=== PATIENT | female | born 1960 | race Caucasian/White ===

== ENCOUNTER 2017-05-25 16:38 | Observation (INO) ==
[2017-05-25 19:03] LABS: Basophils % 0.2 %; Immature Granulocytes % 0.3 % (0-4); Lymphocytes % 6.7 %; Mean Corpuscular HGB Conc 34.8 g/dL (31.6-35.5); Mean Corpuscular Hemoglobin 31.9 pg (28.0-33.3); Mean Corpuscular Volume 91.6 fL (83.0-100.0); Mean Platelet Volume 9.8 fL (9.4-12.4); Monocytes # 0.4 K/mcL (0.0-1.3); Monocytes % 3.1 %; Neutrophils # 12.8 K/mcL (1.6-8.9); Platelet Count 277 K/mcL (140-400); Red Blood Count 5.02 M/mcL (3.82-4.97); Red Cell Distribution Width 12.4 % (11.5-14.5); Segmented Neutrophils % 89.7 %
[2017-05-25 19:17] LABS: Albumin 4.6 g/dL (3.5-5.7); Bilirubin,Direct 0.1 mg/dL (0.0-0.2); Bilirubin,Indirect 0.5 mg/dL (0.0-1.2); Bilirubin,Total 0.6 mg/dL (0.3-1.0); Calcium 9.5 mg/dL (8.6-10.3); Carbon Dioxide 27 mEq/L (23-29); Chloride 105 mEq/L (98-107); Potassium 3.9 mEq/L (3.5-5.1); Sodium 138 mEq/L (136-145)
[2017-05-25 19:46] LABS: Alanine Aminotransferase 19 Units/L (7-52); Albumin/Globulin Ratio 1.5 (1.1-2.2); Alkaline Phosphatase 79 Units/L (34-104); Aspartate Amino Transferase 16 Units/L (13-39); BUN/Creatinine Ratio 15 (6-26); Blood Urea Nitrogen 11 mg/dL (6-20); Globulin 3.1 g/dL (2.4-3.5); Glucose 127 mg/dL (70-105); Lipase 4 Units/L (11-82); Osmolality,Calculated 287 (280-300); Total Protein 7.7 g/dL (6.4-8.9); eGFR For African Americans > 60 (> 60); eGFR For Non-African Americans > 60 (> 60)
[2017-05-25] MEDS ORDERED: *HR* HYDROmorphone (PF) 1 MG/ML SYRINGE IVP ONE ×2 (20:09→21:43)
[2017-05-25] MEDS ORDERED: Ondansetron 4 MG/2 ML VIAL IVP ONE (20:09)
--- NOTE | 2017-05-25 20:09 | Emergency Department Note ---
Disposition Clinical Impression: Colitis Abdominal pain Qualifiers: Abdominal location: unspecified location Qualified Code(s): R10.9 - Unspecified abdominal pain Intractable nausea and vomiting Qualifiers: Vomiting type: unspecified Qualified Code(s): R11.2 - Nausea with vomiting, unspecified Disposition: Admitted As Inpatient Condition: Good General Adult HPI - General Chief complaint: ED Nausea/Vomiting/Diarrhea Stated complaint: ABD Pain/vomiting Time Seen by Provider: 05/25/17 17:37 Source: patient Limitations: no limitations Nursing Notes Reviewed: Yes Vital Signs Reviewed: Yes - History of Present Illness HPI Narrative: Patient presents today for abdominal pain. Patient states abdominal pain has been intermittent for the last 2 weeks. Worse of today. Associated nausea and decreased appetite. Describes pain as generalized worse in the lower quadrants. Radiates around to the back. Worse with movement and walking. Better with rest and still position. No previous history of abdominal surgeries. Review of systems positive for chills, nausea, decreased appetite, abdominal pain, constipation. No fevers, dysuria, frequency, vaginal bleeding or discharge. Pain Scale: 10 - Related Data Home Medications Medication Instructions Recorded Confirmed Advil 12/11/16 Benadryl 12/11/16 Vicks Dayquil Cough 12/11/16 12/11/16 Previous Rx's Medication Instructions Recorded Benzonatate [Tessalon] 200 mg PO TID PRN #30 capsule 12/11/16 Doxycycline 100 mg PO BID #14 capsule 12/11/16 GuaiFENesin ER [Mucinex] 1,200 mg PO BID #20 tbbp.12hr 12/11/16 predniSONE [PredniSONE] 60 mg PO DAILY 5 Days tablet 12/11/16 Allergies Allergy/AdvReac Type Severity Reaction Status Date / Time Penicillins Allergy Rash Verified 12/11/16 11:11 All systems ED: reviewed and negative except as stated. Review of Systems: As Per HPI Constitutional: Reports: chills Cardiovascular: Denies: chest pain Respiratory: Denies: dyspnea Gastrointestinal: Reports: abdominal pain, nausea, constipation Genitourinary: Denies: urgency, dysuria, frequency Past Medical History - Past Medical History Medical history: Reports: no medical history Psychiatric history: Reports: anxiety, depression - Social History Smoking Status: Current every day smoker Smokeless Tobacco Status: No Alcohol use: Reports: none Drug use: Reports: none Physical Exam General: Well appearing, nontoxic, no acute distress Head: Normocephalic Atraumatic Eyes: PERRL, EOMI ENT: Airway patent, no stridor Neck: supple, no meningismus Chest: Lungs clear to auscultation bilateral Cardiac: Regular rate and rhythm, no murmurs, rubs or gallops Abdomen: Right lower quadrant tenderness with radiation of pains across the abdomen. Mild epigastric discomfort. Positive guarding. Positive rebound. No CVA tenderness bilaterally. Musculoskeletal: Calves symmetric, nontender, no palpable cord Skin: No rash, normal skin tone Neuro: Alert and Oriented to person, place, and time; No focal deficit - General Limitations: no limitations General appearance: alert Course - Reevaluation(s) Reevaluation #1: CT scan shows colitis. Patient unable to tolerate by mouth. Patient will be admitted for antibiotics and fluids. - Consultations Consultation #1: Discussed with hospitalist, , patient accepted for admission. Vital Signs Temperature 99.4 F 05/25/17 17:18 Pulse Rate 85 05/25/17 17:18 Respiratory Rate 16 05/25/17 17:18 Blood Pressure 165/92 05/25/17 17:18 O2 Sat by Pulse Oximetry 97 05/25/17 17:18 Temperature 99.4 F 05/25/17 17:18 Pulse Rate 75 05/25/17 21:32 Respiratory Rate 16 05/25/17 21:32 Blood Pressure 163/90 05/25/17 21:32 O2 Sat by Pulse Oximetry 97 05/25/17 21:32 Oxygen Delivery Oxygen Delivery Room Air Medical Decision Making - Lab Data Result diagrams: 05/25/17 18:55 05/25/17 18:55 Lab Results 05/25/17 05/25/17 05/25/17 Range/Units 18:53 18:55 18:55 WBC 14.3 H (4.3-11.1) K/mcL RBC 5.02 H (3.82-4.97) M/mcL Hgb 16.0 H (11.5-15.4) g/dL Hct 46.0 H (35.3-44.9) % MCV 91.6 (83.0-100.0) fL MCH 31.9 (28.0-33.3) pg MCHC 34.8 (31.6-35.5) g/dL RDW 12.4 (11.5-14.5) % Plt Count 277 (140-400) K/mcL MPV 9.8 (9.4-12.4) fL Immature Gran % 0.3 (0-4) % Seg Neutrophils % 89.7 % Lymphocytes % 6.7 % Monocytes % 3.1 % Eosinophils % 0.0 % Basophils % 0.2 % Neutrophils # 12.8 H (1.6-8.9) K/mcL Lymphocytes # 1.0 (0.6-4.6) K/mcL Monocytes # 0.4 (0.0-1.3) K/mcL Eosinophils # 0.0 (0.0-0.6) K/mcL Basophils # 0.0 (0.0-0.2) K/mcL Sodium 138 (136-145) mEq/L Potassium 3.9 (3.5-5.1) mEq/L Chloride 105 (98-107) mEq/L Carbon Dioxide 27 (23-29) mEq/L BUN 11 (6-20) mg/dL Creatinine 0.71 (0.60-1.20) mg/dL Est GFR ( Amer) > 60 (> 60) Est GFR (Non-Af Amer) > 60 (> 60) BUN/Creatinine Ratio 15 (6-26) Glucose 127 H (70-105) mg/dL Calculated Osmolality 287 (280-300) Calcium 9.5 (8.6-10.3) mg/dL Total Bilirubin 0.6 (0.3-1.0) mg/dL Direct Bilirubin 0.1 (0.0-0.2) mg/dL Indirect Bilirubin 0.5 (0.0-1.2) mg/dL AST 16 (13-39) Units/L ALT 19 (7-52) Units/L Alkaline Phosphatase 79 (34-104) Units/L Troponin I (< 0.04) ng/mL Serum Total Protein 7.7 (6.4-8.9) g/dL Albumin 4.6 (3.5-5.7) g/dL Globulin 3.1 (2.4-3.5) g/dL Albumin/Globulin Ratio 1.5 (1.1-2.2) Lipase 4 L (11-82) Units/L Serum , Qual Negative (Negative) Urine Color (Yellow) Urine Clarity (Clear) Urine pH (5.0-8.0) pH Units Ur Specific [place] (1.010-1.025) Urine Protein (Neg-Trace) mg/dL Urine Glucose (UA) (Normal) mg/dL Urine Ketones (Negative) mg/dL Urine Blood (Negative) Urine Nitrite (Negative) Urine Bilirubin (Negative) Urine Urobilinogen (Normal) mg/dL Ur Leukocyte Esterase (Negative) Urine Microscopic RBC (0-3) per hpf Urine Microscopic WBC (0-3) per hpf Ur Squamous Epith Cells (None-Few) per lpf Urine Bacteria (None-Few) per hpf Hyaline Casts (None-Few) per lpf Ur Culture Indicated? (NO) 05/25/17 05/25/17 Range/Units 18:55 20:17 WBC (4.3-11.1) K/mcL RBC (3.82-4.97) M/mcL Hgb (11.5-15.4) g/dL Hct (35.3-44.9) % MCV (83.0-100.0) fL MCH (28.0-33.3) pg MCHC (31.6-35.5) g/dL RDW (11.5-14.5) % Plt Count (140-400) K/mcL MPV (9.4-12.4) fL Immature Gran % (0-4) % Seg Neutrophils % % Lymphocytes % % Monocytes % % Eosinophils % % Basophils % % Neutrophils # (1.6-8.9) K/mcL Lymphocytes # (0.6-4.6) K/mcL Monocytes # (0.0-1.3) K/mcL Eosinophils # (0.0-0.6) K/mcL Basophils # (0.0-0.2) K/mcL Sodium (136-145) mEq/L Potassium (3.5-5.1) mEq/L Chloride (98-107) mEq/L Carbon Dioxide (23-29) mEq/L BUN (6-20) mg/dL Creatinine (0.60-1.20) mg/dL Est GFR ( Amer) (> 60) Est GFR (Non-Af Amer) (> 60) BUN/Creatinine Ratio (6-26) Glucose (70-105) mg/dL Calculated Osmolality (280-300) Calcium (8.6-10.3) mg/dL Total Bilirubin (0.3-1.0) mg/dL Direct Bilirubin (0.0-0.2) mg/dL Indirect Bilirubin (0.0-1.2) mg/dL AST (13-39) Units/L ALT (7-52) Units/L Alkaline Phosphatase (34-104) Units/L Troponin I < 0.03 (< 0.04) ng/mL Serum Total Protein (6.4-8.9) g/dL Albumin (3.5-5.7) g/dL Globulin (2.4-3.5) g/dL Albumin/Globulin Ratio (1.1-2.2) Lipase (11-82) Units/L Serum , Qual (Negative) Urine Color Yellow (Yellow) Urine Clarity Clear (Clear) Urine pH 6.0 (5.0-8.0) pH Units Ur Specific [place] > 1.030 H (1.010-1.025) Urine Protein 30 H (Neg-Trace) mg/dL Urine Glucose (UA) Normal (Normal) mg/dL Urine Ketones 80 H (Negative) mg/dL Urine Blood Trace H (Negative) Urine Nitrite Negative (Negative) Urine Bilirubin Negative (Negative) Urine Urobilinogen Normal (Normal) mg/dL Ur Leukocyte Esterase Negative (Negative) Urine Microscopic RBC 5-15 H (0-3) per hpf Urine Microscopic WBC 3-5 H (0-3) per hpf Ur Squamous Epith Cells Many H (None-Few) per lpf Urine Bacteria None Seen (None-Few) per hpf Hyaline Casts None Seen (None-Few) per lpf Ur Culture Indicated? NO (NO) Attestation Statement - Attestation Attestation: I examined this patient and my medical decision-making was reviewed with the Resident Physician, Dr. Plata. I agree with the documented findings, disposition and treatment plan as described except to the extent set forth below. Patient is an otherwise healthy 56-year-old white female who presents to the emergency room today with a two-week history of intermittent fleeting sharp abdominal pain that has been in various locations lasting seconds and then resolving. Patient states then this morning she woke up and she was having severe generalized lower abdominal pain, bloating, and intractable nausea and vomiting. Patient reports that she was here approximately 6 weeks ago after her family doctor sent her here for inability to have a bowel movement for over 6 days. She reports having a workup done and was told everything was okay and was placed on a stool softener. Patient denies any fevers or chills, no bowel changes or blood in her stool, no abdominal surgeries in the past and no other associated symptoms. I agree with patient's physical exam findings as documented. Patient underwent lab evaluation and received pain medicines and antiemetics for comfort. Patient was sent for CT scanning with IV contrast to rule out any intra-abdominal emergency due to her abdominal exam. Patient's CT reports evidence of colitis acute on chronic changes. Appendix appears normal. Due to her inability to tolerate by mouth, ongoing pain and can concerning CT findings for colitis we will cover the patient with IV antibiotics and admit the patient to the hospitalist service for further evaluation and management. Patient remains hemodynamically stable at this time and serial abdominal exams are unchanged.
[2017-05-25 20:27] LABS: Bilirubin,Urine Negative (Negative); Blood,Urine Trace (Negative); Clarity,Urine Clear (Clear); Color,Urine Yellow (Yellow); Glucose,Urine (UA) Normal (Normal); Ketones,Urine 80 mg/dL (Negative); Leukocyte Esterase,Urine Negative (Negative); Nitrite,Urine Negative (Negative); Protein,Urine 30 mg/dL (Neg-Trace); Specific Gravity,Urine > 1.030 (1.010-1.025); Urobilinogen,Urine Normal (Normal)
[2017-05-25 20:28] LABS: Bacteria,Urine None Seen per hpf (None-Few); Hyaline Casts,Urine None Seen per lpf (None-Few); Squamous Epithelial Cell,Urine Many per lpf (None-Few)
[2017-05-25] MEDS ORDERED: MetroNIDAZOLE 500 MG/100 ML 500 MG/100 ML BAG IVPB ONE (20:57)
[2017-05-25] MEDS ORDERED: 0.9 % Sodium Chloride 1,000 ML IVC ONE (21:00)
[2017-05-25] MEDS ORDERED: Acetaminophen 325 MG TABLET PO PRN (23:50)
[2017-05-25] MEDS ORDERED: Naloxone 0.4 MG/ML INJ IVP PRN (23:50)
--- NOTE | 2017-05-25 23:52 | Internal Med History&Physical ---
<Yo Garcia - Last Filed: 05/26/17 00:19> Date of Encounter: 05/26/17 Time of Encounter: 23:30 Assessment and Plan (1) Colitis Current visit: Yes Status: Acute 2 weeks of intermittent worsening abdominal pain more pronounced in left lower quadrant without bleed, fever, diarrhea, ascending paralysis/paresthesias/ dyspnea. Continue Cipro/flagyl. IV hydration 100cc/hr. Colonoscopy performed 5 years ago, pt reports no concerning findings per GI. Pain management if needed. Morphine 4mg q4, Dilaudid .5mg q4 for severe pain. Meds list verification. (2) Abdominal pain Current visit: Yes Status: Acute As per MDM (1). Qualifiers: Abdominal location: left lower quadrant Qualified Code(s): R10.32 - Left lower quadrant pain (3) DVT prophylaxis Current visit: Yes Status: Acute SQ Heparin 5000U q12h. Total time ~40min Internal Medicine - H&P: HPI Admitted From: Emergency Dept Plans for Post Hospital Care: Home History of present illness: Ms. Kaur is a 56 year old female who presents to ED for 2 weeks of intermittent worsening lower abdominal pain. Patient reports n/v/decreased appetite/subjective chills, denies fever, blood in stool. Last bowel movement was yesterday, normal. CT abdomen in ED shows moderate sigmoid wall thickening with adjacent pericolic fat stranding. CT 2016 shows thickened wall as well, colonoscopy 5 years ago per pt was unremarkable. Currently patient is alert, conversant, abdominal pain persists/has not worsened. Past Med Surg Social Fam HX - Past Medical History Medical history: no medical history Psychiatric history: anxiety, depression - Social History Smoking Status: Current every day smoker Smokeless Tobacco Status: No Alcohol use: none Drug use: none Internal Medicine - H&P: Meds Advil 12/11/16 [History] Benadryl 12/11/16 [History] Benzonatate [Tessalon] 200 mg PO TID PRN #30 capsule 12/11/16 [Rx] Doxycycline 100 mg PO BID #14 capsule 12/11/16 [Rx] GuaiFENesin ER [Mucinex] 1,200 mg PO BID #20 tbbp.12hr 12/11/16 [Rx] Vicks Dayquil Cough 12/11/16 [History] predniSONE [PredniSONE] 60 mg PO DAILY 5 Days tablet 12/11/16 [Rx] 3 Allergy/AdvReac Type Severity Reaction Status Date / Time Penicillins Allergy Rash Verified 12/11/16 11:11 All Systems PM: A 10-system review of systems was performed and is negative for pertinent findings except as documented above in the HPI. - Constitutional Vitals: Temp Pulse Resp BP Pulse Ox 98.0 F 89 14 135/83 97 05/25/17 23:04 05/25/17 23:04 05/25/17 23:04 05/25/17 23:04 05/25/17 23:18 General appearance: Present: A&O X 3, no acute distress - Head Head exam: Present: atraumatic - ENT ENT exam: Present: mucous membranes dry - Neck Neck exam general surgery: Present: full ROM - Cardiovascular Cardiovascular exam: Present: RRR, +S1, +S2 - GI/Abdominal GI/Abdominal exam: Present: soft, no peritoneal signs Additional comments: lower abdominal tenderness L>R - Extremities Exam Extremities exam: Present: normal inspection. Absent: calf tenderness Additional comments: normal sensation/strength Internal Med - H&P Results - Labs CBC & Chem 7: 05/25/17 18:55 05/25/17 18:55 <Mamie Macias - Last Filed: 05/26/17 01:26> Date of Encounter: 05/26/17 Time of Encounter: 00:15 Internal Medicine - H&P: HPI History of present illness: Ms. Kaur is a 56 year old female All Systems PM: A 10-system review of systems was performed and is negative for pertinent findings except as documented above in the HPI. - Constitutional Vitals: Temp Pulse Resp BP Pulse Ox 98.0 F 89 14 135/83 97 05/25/17 23:04 05/25/17 23:04 05/25/17 23:04 05/25/17 23:04 05/25/17 23:18 Internal Med - H&P Results - Labs CBC & Chem 7: 05/25/17 18:55 05/25/17 18:55 - Attending Attestation Patient is a 56y/o female admitted for abd pain, n/v secondary to colitis Pt independently seen and examined at bedside. will continue supportive care IV fluids, IV abx, pain management antiemetic support as needed start clear liquid diet and advance as tolerated Case discussed with resident physician Yo Garcia, I agree with his documented findings, assessment, and plan except as listed above. Please verify home meds in am Restart home meds after verification
[2017-05-26] MEDS: 0.9 % Sodium Chloride 1,000 ML IVC SCH ×2 (00:30→12:07)
[2017-05-26] MEDS: *HR* Morphine 2 MG/ML SYRINGE IVP PRN ×3 (00:30→20:42)
[2017-05-26 04:50] LABS: Magnesium 1.9 mg/dL (1.6-2.6); Phosphorous 3.1 mg/dL (2.7-4.5)
[2017-05-26 04:51] LABS: BUN/Creatinine Ratio 14 (6-26); Blood Urea Nitrogen 9 mg/dL (6-20); Calcium 8.3 mg/dL (8.6-10.3); Carbon Dioxide 24 mEq/L (23-29); Chloride 109 mEq/L (98-107); Glucose 95 mg/dL (70-105); Osmolality,Calculated 284 (280-300); Potassium 3.4 mEq/L (3.5-5.1); Sodium 138 mEq/L (136-145); eGFR For African Americans > 60 (> 60); eGFR For Non-African Americans > 60 (> 60)
[2017-05-26] MEDS: *HR* Heparin 5,000 UNIT/ML VIAL SQ SCH ×2 (05:29→18:04)
[2017-05-26] MEDS: MetroNIDAZOLE 500 MG/100 ML 500 MG/100 ML BAG IVPB SCH ×4 (05:29→20:41)
[2017-05-26 07:38] LABS: Basophils # 0.1 K/mcL (0.0-0.2); Basophils % 0.4 %; Eosinophils # 0.1 K/mcL (0.0-0.6); Eosinophils % 0.7 %; Hematocrit 41.3 % (35.3-44.9); Immature Granulocytes % 0.3 % (0-4); Mean Corpuscular HGB Conc 33.9 g/dL (31.6-35.5); Mean Corpuscular Hemoglobin 31.6 pg (28.0-33.3); Mean Corpuscular Volume 93.2 fL (83.0-100.0); Mean Platelet Volume 11.3 fL (9.4-12.4); Monocytes # 1.2 K/mcL (0.0-1.3); Monocytes % 9.3 %; Neutrophils # 8.1 K/mcL (1.6-8.9); Platelet Count 235 K/mcL (140-400); Red Blood Count 4.43 M/mcL (3.82-4.97); Red Cell Distribution Width 12.5 % (11.5-14.5); Segmented Neutrophils % 65.3 %
[2017-05-26] MEDS: *HR* HYDROmorphone (PF) 1 MG/ML SYRINGE IVP PRN ×3 (08:46→18:11)
--- NOTE | 2017-05-26 11:34 | Internal Med Progress Note ---
Date of Encounter: 05/26/17 Time of Encounter: 11:28 - Assessment and plan (1) Colitis Current Visit: Yes Status: Acute Assessment and plan: Sigmoid wall thickening not significantly different than previous imaging. Continue bowel rest and advance diet slowly. Continue current pain mgt. Continue empiric antibiotic coverage with Cipro and Flagyl. (2) Abdominal pain Current Visit: Yes Status: Acute Assessment and plan: Abdominal pain associated with sigmoid colitis. Treatment as noted abo ve. Qualifiers: Abdominal location: left lower quadrant Qualified Code(s): R10.32 - Left lower quadrant pain - Subjective Interval history: 56 yr old woman with history of IBS who presented with several days of worsening RLQ abd pain. Her CT Abd/pelvis showed sigmoid wall thickening. Her CT-scan did not show any significant difference from prior scan. Shes not having N/V or diarrhea today - Constitutional Vitals: Temp Pulse Resp BP Pulse Ox 98.1 F 75 14 128/74 95 05/26/17 07:40 05/26/17 07:40 05/26/17 07:40 05/26/17 07:40 05/26/17 07:40 General appearance: Present: A&O X 3, no acute distress - Head Head exam: Present: atraumatic, normocephalic - Eye Eye exam: Present: EOMI, PERRL, conjuntiva pink, sclera anicteric Pupils: Present: PERRL - Neck Neck exam general surgery: Present: supple, trachea midline. Absent: lymphadenopathy - Respiratory Respiratory exam: Present: CTAB. Absent: accessory muscle use, rales, rhonchi, wheezes - Cardiovascular Cardiovascular exam: Present: RRR, +S1, +S2. Absent: diastolic murmur, gallop, JVD, rubs, systolic murmur - GI/Abdominal GI/Abdominal exam: Present: guarding, normal bowel sounds, soft, no peritoneal signs. Absent: distended, tenderness - Extremities Exam Extremities exam: Present: warm, radial pulses palpable and symmetrical. Absent : calf tenderness, cyanotic, pedal edema - Neurological Exam Neurological exam: Present: CN II-XII intact, oriented X3, no focal deficits. Absent: pronater drift, facial droop, speech deficit - Skin Skin exam: Present: dry, intact Internal Medicine: Result - Labs CBC & Chem 7: 05/26/17 04:20 05/26/17 04:20 Labs: Short CBC 05/26/17 Range/Units 04:20 WBC 12.4 H (4.3-11.1) K/mcL Hgb 14.0 D (11.5-15.4) g/dL Hct 41.3 (35.3-44.9) % Plt Count 235 (140-400) K/mcL Neutrophils # 8.1 (1.6-8.9) K/mcL BMP 05/26/17 04:20 Sodium 138 Potassium 3.4 L Chloride 109 H Carbon Dioxide 24 BUN 9 Creatinine 0.64 Glucose 95 Calcium 8.3 L Consult Discharge Plan - Plan Referrals: Mariusz Galarza DO [Primary Care Provider] -
[2017-05-27] MEDS: 0.9 % Sodium Chloride 1,000 ML IVC SCH ×2 (00:54→13:27)
[2017-05-27] MEDS: MetroNIDAZOLE 500 MG/100 ML 500 MG/100 ML BAG IVPB SCH ×3 (05:11→21:37)
[2017-05-27] MEDS: *HR* Heparin 5,000 UNIT/ML VIAL SQ SCH ×2 (05:14→17:37)
[2017-05-27 07:58] LABS: BUN/Creatinine Ratio 8 (6-26); Blood Urea Nitrogen 5 mg/dL (6-20); Calcium 8.4 mg/dL (8.6-10.3); Carbon Dioxide 26 mEq/L (23-29); Chloride 109 mEq/L (98-107); Glucose 96 mg/dL (70-105); Osmolality,Calculated 287 (280-300); Potassium 3.6 mEq/L (3.5-5.1); Sodium 140 mEq/L (136-145); eGFR For African Americans > 60 (> 60); eGFR For Non-African Americans > 60 (> 60)
[2017-05-27] MEDS: *HR* HYDROmorphone (PF) 1 MG/ML SYRINGE IVP PRN ×3 (07:58→21:45)
[2017-05-27 08:22] LABS: Basophils # 0.1 K/mcL (0.0-0.2); Basophils % 0.8 %; Eosinophils # 0.3 K/mcL (0.0-0.6); Eosinophils % 3.5 %; Hematocrit 38.5 % (35.3-44.9); Hemoglobin 12.9 g/dL (11.5-15.4); Immature Granulocytes % 0.3 % (0-4); Lymphocytes # 1.6 K/mcL (0.6-4.6); Mean Corpuscular HGB Conc 33.5 g/dL (31.6-35.5); Mean Corpuscular Hemoglobin 31.2 pg (28.0-33.3); Mean Corpuscular Volume 93.2 fL (83.0-100.0); Mean Platelet Volume 11.4 fL (9.4-12.4); Monocytes # 0.8 K/mcL (0.0-1.3); Monocytes % 10.1 %; Neutrophils # 4.7 K/mcL (1.6-8.9); Nucleated Red Blood Cells 0.4 /100 WBC (0); Platelet Count 222 K/mcL (140-400); Red Blood Count 4.13 M/mcL (3.82-4.97); Red Cell Distribution Width 12.4 % (11.5-14.5); Segmented Neutrophils % 63.3 %
--- NOTE | 2017-05-27 10:30 | Internal Med Progress Note ---
Date of Encounter: 05/27/17 Time of Encounter: 10:28 - Assessment and plan (1) Colitis Current Visit: Yes Status: Acute Assessment and plan: Sigmoid wall thickening not significantly different than previous imaging. Continue bowel rest and advance diet slowly. Continue current pain mgt. Continue empiric antibiotic coverage with Cipro and Flagyl. I called to have GI paged and was told unless its a GIB we cannot get a GI consult this weekend. She has releatively mild symptoms and can likely f/u as an out patient. Her diet will be advanced and if she tolerates it we can discharge to home tomorrow. (2) Abdominal pain Current Visit: Yes Status: Acute Qualifiers: Abdominal location: left lower quadrant Qualified Code(s): R10.32 - Left lower quadrant pain - Subjective Interval history: 56 yr old woman with history of IBS who presented with several days of worsening RLQ abd pain. Her CT Abd/pelvis showed sigmoid wall thickening. Her CT-scan did not show any significant difference from prior scan. No N/V and diarrhea. Her abdominal pain is modestly improved. - Constitutional Vitals: Temp Pulse Resp BP Pulse Ox 98.2 F 73 16 144/87 95 05/27/17 07:04 05/27/17 07:04 05/27/17 07:04 05/27/17 07:04 05/27/17 07:04 General appearance: Present: A&O X 3, no acute distress - Head Head exam: Present: atraumatic, normocephalic - Eye Eye exam: Present: PERRL, conjuntiva pink, sclera anicteric Pupils: Present: PERRL - Neck Neck exam general surgery: Present: supple, trachea midline. Absent: lymphadenopathy - Respiratory Respiratory exam: Present: CTAB. Absent: accessory muscle use, rales, rhonchi, wheezes - Cardiovascular Cardiovascular exam: Present: RRR, +S1, +S2. Absent: diastolic murmur, gallop, rubs, systolic murmur - GI/Abdominal GI/Abdominal exam: Present: normal bowel sounds, soft, no peritoneal signs. Absent: distended, tenderness - Extremities Exam Extremities exam: Present: warm, radial pulses palpable and symmetrical. Absent : calf tenderness, cyanotic, pedal edema - Neurological Exam Neurological exam: Present: CN II-XII intact, oriented X3, no focal deficits. Absent: pronater drift, facial droop, speech deficit - Skin Skin exam: Present: dry, intact Internal Medicine: Result - Labs CBC & Chem 7: 05/27/17 06:48 05/27/17 06:48 Labs: Short CBC 05/27/17 Range/Units 06:48 WBC 7.4 (4.3-11.1) K/mcL Hgb 12.9 (11.5-15.4) g/dL Hct 38.5 (35.3-44.9) % Plt Count 222 (140-400) K/mcL Neutrophils # 4.7 (1.6-8.9) K/mcL BMP 05/27/17 06:48 Sodium 140 Potassium 3.6 Chloride 109 H Carbon Dioxide 26 BUN 5 L Creatinine 0.63 Glucose 96 Calcium 8.4 L Consult Discharge Plan - Plan Referrals: Mariusz Galarza DO [Primary Care Provider] -
[2017-05-28] MEDS: 0.9 % Sodium Chloride 1,000 ML IVC SCH ×3 (03:06→16:07)
[2017-05-28] MEDS: MetroNIDAZOLE 500 MG/100 ML 500 MG/100 ML BAG IVPB SCH ×3 (05:36→21:02)
[2017-05-28] MEDS: *HR* Heparin 5,000 UNIT/ML VIAL SQ SCH ×2 (05:39→17:36)
[2017-05-28] MEDS: *HR* HYDROmorphone (PF) 1 MG/ML SYRINGE IVP PRN ×2 (08:01→19:17)
[2017-05-28] MEDS: Ondansetron ODT 4 MG TAB.RAPDIS SL PRN ×2 (08:01→23:23)
--- NOTE | 2017-05-28 09:22 | Internal Med Progress Note ---
Date of Encounter: 05/28/17 Time of Encounter: 09:22 - Assessment and plan (1) Colitis Current Visit: Yes Status: Acute Assessment and plan: Sigmoid wall thickening not significantly different than previous imaging. Continue bowel rest and advance diet slowly. Continue current pain mgt. Continue empiric antibiotic coverage with Cipro and Flagyl. I called to have GI paged and was told unless its a GIB we cannot get a GI consult this weekend. She has releatively mild symptoms and can likely f/u as an out patient. Her diet will be advanced and if she tolerates it we can discharge to home tomorrow. Today her diet was returned to soft diet. Continue cipro and flagyl and continue current pain mgt. (2) Abdominal pain Current Visit: Yes Status: Acute Qualifiers: Abdominal location: left lower quadrant Qualified Code(s): R10.32 - Left lower quadrant pain - Subjective Interval history: 56 yr old woman with history of IBS who presented with several days of worsening RLQ abd pain. Her CT Abd/pelvis showed sigmoid wall thickening. Her CT-scan did not show any significant difference from prior scan. No N/V and diarrhea. Her abdominal pain had been improved and her diet advanced. We had planned to d/c her day but she c/o increased bilateral LQ pain and we had to hold her another day and return to a soft diet. - Constitutional Vitals: Temp Pulse Resp BP Pulse Ox 98.2 F 73 16 119/78 93 05/28/17 08:11 05/28/17 08:11 05/28/17 08:11 05/28/17 08:11 05/28/17 08:11 General appearance: Present: A&O X 3, no acute distress - Head Head exam: Present: atraumatic, normal inspection, normocephalic - Eye Eye exam: Present: EOMI, PERRL, conjuntiva pink, sclera anicteric - ENT ENT exam: Present: mucous membranes moist, normal exam - Neck Neck exam general surgery: Present: normal inspection, supple, trachea midline. Absent: tenderness, nuchal rigidity, thyromegaly - GI/Abdominal GI/Abdominal exam: Present: guarding, soft, tenderness, no peritoneal signs. Absent: diminished bowel sounds, hepatomegaly, rebound, rigid - Extremities Exam Extremities exam: Present: full ROM, normal inspection, warm - Neurological Exam Neurological exam: Present: CN II-XII intact, oriented X3, no focal deficits. Absent: pronater drift, facial droop, speech deficit - Psychiatric Psychiatric exam: Present: normal affect, normal mood. Absent: suicidal ideation Internal Medicine: Result - Labs CBC & Chem 7: 05/27/17 06:48 05/27/17 06:48 Consult Discharge Plan - Plan Referrals: Mariusz Galarza DO [Primary Care Provider] -
[2017-05-29] MEDS: 0.9 % Sodium Chloride 1,000 ML IVC SCH ×2 (03:15→16:30)
[2017-05-29 04:56] LABS: Basophils # 0.1 K/mcL (0.0-0.2); Basophils % 0.8 %; Eosinophils # 0.4 K/mcL (0.0-0.6); Eosinophils % 6.4 %; Hematocrit 36.6 % (35.3-44.9); Hemoglobin 12.4 g/dL (11.5-15.4); Immature Granulocytes % 0.3 % (0-4); Lymphocytes # 1.8 K/mcL (0.6-4.6); Lymphocytes % 30.2 %; Mean Corpuscular HGB Conc 33.9 g/dL (31.6-35.5); Mean Corpuscular Hemoglobin 31.1 pg (28.0-33.3); Mean Corpuscular Volume 91.7 fL (83.0-100.0); Mean Platelet Volume 11.2 fL (9.4-12.4); Monocytes # 0.6 K/mcL (0.0-1.3); Monocytes % 10.6 %; Neutrophils # 3.1 K/mcL (1.6-8.9); Platelet Count 223 K/mcL (140-400); Red Blood Count 3.99 M/mcL (3.82-4.97); Red Cell Distribution Width 12.1 % (11.5-14.5); Segmented Neutrophils % 51.7 %
[2017-05-29 05:11] LABS: BUN/Creatinine Ratio 10 (6-26); Blood Urea Nitrogen 7 mg/dL (6-20); Calcium 8.4 mg/dL (8.6-10.3); Carbon Dioxide 26 mEq/L (23-29); Chloride 109 mEq/L (98-107); Glucose 93 mg/dL (70-105); Osmolality,Calculated 290 (280-300); Potassium 3.5 mEq/L (3.5-5.1); Sodium 141 mEq/L (136-145); eGFR For African Americans > 60 (> 60); eGFR For Non-African Americans > 60 (> 60)
[2017-05-29] MEDS: MetroNIDAZOLE 500 MG/100 ML 500 MG/100 ML BAG IVPB SCH ×3 (05:31→21:29)
[2017-05-29] MEDS: *HR* Heparin 5,000 UNIT/ML VIAL SQ SCH ×3 (05:33→21:28)
[2017-05-29] MEDS ORDERED: Polyethylene Glycol 3350 255 GM POWDER PO ONE (11:42)
--- NOTE | 2017-05-29 13:20 | Internal Med Progress Note ---
Date of Encounter: 05/29/17 Time of Encounter: 13:19 - Assessment and plan (1) Colitis Current Visit: Yes Status: Acute (2) Abdominal pain Current Visit: Yes Status: Acute Qualifiers: Abdominal location: left lower quadrant Qualified Code(s): R10.32 - Left lower quadrant pain - Subjective Interval history: 56 yr old woman with history of IBS who presented with several days of worsening RLQ abd pain. Her CT Abd/pelvis showed sigmoid wall thickening. Her CT-scan did not show any significant difference from prior scan. No N/V and diarrhea. Her abdominal pain had been improved and her diet advanced. We had planned to d/c her yesterday but she c/o increased bilateral LQ pain and we had to hold her another day and return to a soft diet. Today her pain is worse and we will consult GI. Physical exam: Gen: A&O x2 in no acute distress HEENT: Head is atraumatic and normocephalic. PERRLA, EOM-full No scleral icterus. No oral or perioral lesions. Neck: No JVD, Thyroid is ML without thyromegally or nodules. No cervical LAD CV: RRR with nl s1 and S2 No murmurs Lungs: CTAB No no wheezing, rales or rhonchi Abdomen: Soft , nondistended, tender with guarding over the LLQ. NL BS all 4 quads. No RBT or peritoneal signs. Extremities: No pedal edema Skin: warm and dry without rashes Neruo: No obvious focal deficits. Pertientnt lab findings: Noted below A/P: Sigmoid colitis: Today GI was consulted and she will start bowel prep for colonoscopy tomorrow. Continue Cipro and Flagyl. Continue current pain mgt. Continue NPO status. > 30 mins spent - Constitutional Vitals: Temp Pulse Resp BP Pulse Ox 98.2 F 71 14 145/89 95 05/29/17 10:52 05/29/17 10:52 05/29/17 10:52 05/29/17 10:52 05/29/17 10:52 General appearance: Present: A&O X 3, no acute distress Internal Medicine: Result - Labs CBC & Chem 7: 05/29/17 04:01 05/29/17 04:01 Labs: Short CBC 05/29/17 Range/Units 04:01 WBC 6.0 (4.3-11.1) K/mcL Hgb 12.4 (11.5-15.4) g/dL Hct 36.6 (35.3-44.9) % Plt Count 223 (140-400) K/mcL Neutrophils # 3.1 (1.6-8.9) K/mcL BMP 05/29/17 04:01 Sodium 141 Potassium 3.5 Chloride 109 H Carbon Dioxide 26 BUN 7 Creatinine 0.67 Glucose 93 Calcium 8.4 L Consult Discharge Plan - Plan Referrals: Mariusz Galarza DO [Primary Care Provider] -
--- NOTE | 2017-05-29 13:59 | Gastroenterology Consult Note ---
<Rosa Maria Bean - Last Filed: 05/29/17 14:01> Date of Encounter: 05/29/17 Time of Encounter: 11:15 - Assessment and plan (1) Colitis Current Visit: Yes Status: Acute Assessment and plan: 56 year old female who presents with abdominal pain, nausea and vomiting. CT abdomen shows thickening in sigmoid colon. Will proceed with colonoscopy tomorrow. Risks and benefits explained and pt is in agreement. (2) Abdominal pain Current Visit: Yes Status: Acute Qualifiers: Abdominal location: left lower quadrant Qualified Code(s): R10.32 - Left lower quadrant pain (3) Intractable nausea and vomiting Current Visit: Yes Status: Acute Assessment and plan: EGD tomorrow Qualifiers: Vomiting type: unspecified Qualified Code(s): R11.2 - Nausea with vomiting , unspecified - Time Spent With Patient Total time spent is greater than 50% in coordination of care (as documented) at patient's floor/unit and/or counseling patient: GI History of Present Illness - Data of Consult Patient: new to practice Consult date: 05/29/17 Requesting Physician: Godwin Rodgers - Consult Narrative Reason for consult: abdominal pain, abnormal CT History of present illness: Ms. Kaur is a 56 year old female with a pmhx of anxiety and depression who presents to ED for 2 weeks of intermittent worsening lower abdominal pain. She also complains of nausea, vomiting and severe abdominal pain every time she eats. She states this has been on and off for the past 6-9 months. She denies fever or chills. She reports occasional constipation that she takes miralax for and then she has diarrhea. She denies bloody, black or tarry stools. CT abdomen in ED shows moderate sigmoid wall thickening with adjacent pericolic fat stranding. This segment of colon is similar to the prior study in 2016. She reports colonoscopy 5 years ago per pt was unremarkable. Colonoscopy: 2011 Dr Gallagher (diverticulosis, internal hemorrhoids) EGD: denies NSAIDS: aleve and motrin Anticoagulants: none Past Med Surg Social Fam HX - Past Medical History Medical history: no medical history Psychiatric history: anxiety, depression - Social History Smoking Status: Current every day smoker Smokeless Tobacco Status: No Alcohol use: none Drug use: none Review of Systems: GI: as per [place] [facility]: denies fever, has some chills EYES: denies yellow discoloration ENT: denies pain with swallowing or difficulty swallowing CARDIO: denies chest pain, palpitations RESP: No Shortness of breath with exertion : denies change in color of urine NEURO: denies any weakness HEME: Denies any bruising MS: denies joint pain, joint swelling or back pain. DERM: denies rash or itching PSYCH: Denies history of anxiety or depression - Constitutional Vitals: Temp Pulse Resp BP Pulse Ox 98.2 F 71 14 145/89 95 05/29/17 10:52 05/29/17 10:52 05/29/17 10:52 05/29/17 10:52 05/29/17 10:52 Exam: CONSTITUTIONAL:~alert, no acute distress.~HEAD:~normocephalic.~EYES:~no jaundice.~NECK:~no obvious swelling.~HEART:~regular rate and rhythm, no murmurs. ~LUNGS:~bilateral good air entry.~ABDOMEN:~non distended, soft, tender, no masses palpable, no organomegaly.~RECTAL EXAM:~Deferred.~EXTREMITIES:~no clubbing, cyanosis or edema.~SKIN:~no stigmata of chronic liver disease.~ NEUROLOGIC:~no obvious focal defect.~~~~ Results - Labs CBC & Chem 7: 05/29/17 04:01 05/29/17 04:01 Labs: Last Result Calcium 8.4 mg/dL (8.6-10.3) L 05/29/17 04:01 Troponin I < 0.03 ng/mL (< 0.04) 05/25/17 18:55 Entire Visit Hgb 12.4 g/dL (11.5-15.4) 05/29/17 04:01 Hct 36.6 % (35.3-44.9) 05/29/17 04:01 Total Bilirubin 0.6 mg/dL (0.3-1.0) 05/25/17 18:55 AST 16 Units/L (13-39) 05/25/17 18:55 ALT 19 Units/L (7-52) 05/25/17 18:55 Lipase 4 Units/L (11-82) L 05/25/17 18:55 Consult Discharge Plan - Plan Referrals: Galarza,Christopher, DO [Primary Care Provider] - <Angelo Palma - Last Filed: 05/29/17 17:44> Date of Encounter: 05/29/17 Time of Encounter: 17:35 - Time Spent With Patient Total time spent is greater than 50% in coordination of care (as documented) at patient's floor/unit and/or counseling patient: GI History of Present Illness - Data of Consult Requesting Physician: Godwin Rodgers - Consult Narrative History of present illness: Ms. Kaur is a 56 year old female - Constitutional Vitals: Temp Pulse Resp BP Pulse Ox 98.5 F 72 14 142/86 95 05/29/17 15:29 05/29/17 15:29 05/29/17 15:29 05/29/17 15:29 05/29/17 15:29 Results - Labs CBC & Chem 7: 05/29/17 04:01 05/29/17 04:01 Labs: Last Result Calcium 8.4 mg/dL (8.6-10.3) L 05/29/17 04:01 Troponin I < 0.03 ng/mL (< 0.04) 05/25/17 18:55 Entire Visit Hgb 12.4 g/dL (11.5-15.4) 05/29/17 04:01 Hct 36.6 % (35.3-44.9) 05/29/17 04:01 Total Bilirubin 0.6 mg/dL (0.3-1.0) 05/25/17 18:55 AST 16 Units/L (13-39) 05/25/17 18:55 ALT 19 Units/L (7-52) 05/25/17 18:55 Lipase 4 Units/L (11-82) L 05/25/17 18:55 - Attending Attestation I examined this patient and my medical decision-making was reviewed with the Resident Physician. I agree with the documented findings, disposition and treatment plan as described except to the extent set forth below. Patient 56-year-old female with abdominal pain and abnormal CT of the sigmoid colon. Has been on antibiotic for the last 4 days but per patient she is not getting better. Denies any blood in her stool. Recommendation is colonoscopy. She will also have a EGD done for her nausea and vomiting symptoms tomorrow
[2017-05-29] MEDS: Ondansetron ODT 4 MG TAB.RAPDIS SL PRN (16:30)
[2017-05-30] MEDS: 0.9 % Sodium Chloride 1,000 ML IVC SCH ×3 (03:34→19:12)
[2017-05-30] MEDS: MetroNIDAZOLE 500 MG/100 ML 500 MG/100 ML BAG IVPB SCH ×3 (04:49→20:01)
[2017-05-30] MEDS: *HR* Heparin 5,000 UNIT/ML VIAL SQ SCH ×2 (06:01→17:53)
[2017-05-30 08:20] LABS: Basophils % 0.5 %; Eosinophils # 0.4 K/mcL (0.0-0.6); Eosinophils % 4.1 %; Hematocrit 40.6 % (35.3-44.9); Immature Granulocytes % 0.2 % (0-4); Lymphocytes # 2.1 K/mcL (0.6-4.6); Lymphocytes % 24.1 %; Mean Corpuscular HGB Conc 34.7 g/dL (31.6-35.5); Mean Corpuscular Hemoglobin 31.6 pg (28.0-33.3); Mean Platelet Volume 10.2 fL (9.4-12.4); Monocytes # 0.8 K/mcL (0.0-1.3); Monocytes % 9.1 %; Neutrophils # 5.4 K/mcL (1.6-8.9); Platelet Count 245 K/mcL (140-400); Red Blood Count 4.46 M/mcL (3.82-4.97); Red Cell Distribution Width 12.2 % (11.5-14.5)
[2017-05-30 08:22] LABS: Hemoglobin 14.1 g/dL (11.5-15.4)
[2017-05-30] MEDS: Ondansetron ODT 4 MG TAB.RAPDIS SL PRN (08:32)
[2017-05-30 09:07] LABS: BUN/Creatinine Ratio 6 (6-26); Blood Urea Nitrogen 4 mg/dL (6-20); Calcium 8.7 mg/dL (8.6-10.3); Carbon Dioxide 25 mEq/L (23-29); Chloride 108 mEq/L (98-107); Glucose 100 mg/dL (70-105); Osmolality,Calculated 291 (280-300); Potassium 3.7 mEq/L (3.5-5.1); Sodium 142 mEq/L (136-145); eGFR For African Americans > 60 (> 60); eGFR For Non-African Americans > 60 (> 60)
--- NOTE | 2017-05-30 12:30 | Anesthesia Evaluation PreOp ---
Date of Encounter: 05/30/17 Time of Encounter: 12:25 - Past History Planned Operation: EGD/colonoscopy for abd. pain Cardiac History: Denies any Significant Hx Pulmonary History: Denies Any Significant HX, Former smoker [employer] History: Denies Any Significant HX Other Medical History: Denies Any Significant HX Anesthesia History: No Prior Anesthetic Complications, Past Anesthesia Alcohol Use: none Drug use: none Medications and Allergies Varenicline Tartrate [Chantix] 1 mg PO BID 05/26/17 [History] 3 Allergy/AdvReac Type Severity Reaction Status Date / Time Penicillins Allergy Rash Verified 12/11/16 11:11 - Meds/Allergy Pre-op Review Medications Reviewed: Yes Allergies Reviewed: Yes Beta Blockers on Current Med List: No Anesthesia Results - Labs 05/30/17 08:03 05/30/17 08:03 - Imaging EKG: image reviewed (sinus rhythm) Anesthesia Exam Selected Entries 05/30/17 10:40 Temperature 98.7 F Pulse Rate 67 Respiratory Rate 16 Blood Pressure 127/79 O2 Sat by Pulse Oximetry 97 Weight: 86 kg NPO (# of Hours): over 8 hours - HEENT Pupil (Motor): Pupils equal Mallampati: II Teeth: Normal Oral Opening: Greater than 3 - Cardiac Rhythm: Regular Murmur: None - Pulmonary Breath Sounds: bilateral Clear Respiratory Effort: Symmetrical Anesthesia Assess/Plan ASA Score: 2 Modified Марина Scale for Level of Consciousness: Cooperative, oriented, and tranquil Anesthetic Plan: MAC Monitoring Plan: Standard Monitors Recovery Plan: Other (Discussed MAC anesthesia, agreed to proceed.)
[2017-05-30] MEDS ORDERED: Propofol 500 MG/50 ML INFUS..BTL ONE (12:55)
[2017-05-30] MEDS ORDERED: Lidocaine -MPF 2% 2 ML VIAL ONE (12:55)
[2017-05-30] MEDS ORDERED: Tetracaine/Benzocaine/Butamben 200MG/SPRAY (100SPY/BOT) MM ONE (13:10)
--- NOTE | 2017-05-30 18:17 | Internal Med Progress Note ---
Date of Encounter: 05/30/17 Time of Encounter: 11:00 - Assessment and plan (1) Colitis Current Visit: Yes Status: Acute Assessment and plan: Sigmoid wall thickening not significantly different than previous imaging. GI consult for recommendations for colonoscopy which showed congested mucosa in the distal sigmoid colon Continue empiric antibiotic coverage with Cipro and Flagyl. Her diet will be advanced and if she tolerates it we can discharge to home tomorrow. (2) Abdominal pain Current Visit: Yes Status: Acute Assessment and plan: Abdominal pain associated with sigmoid colitis. Treatment as noted above. Qualifiers: Abdominal location: left lower quadrant Qualified Code(s): R10.32 - Left lower quadrant pain (3) DVT prophylaxis Current Visit: Yes Status: Acute Assessment and plan: Subcutaneous heparin - Subjective Interval history: Colonoscopy showed congested mucosa in the distal sigmoid colon - Constitutional Vitals: Temp Pulse Resp BP Pulse Ox 98.3 F 67 16 126/74 100 05/30/17 15:31 05/30/17 15:31 05/30/17 15:31 05/30/17 15:31 05/30/17 15:31 General appearance: Present: A&O X 3, no acute distress - Respiratory Respiratory exam: Present: CTAB. Absent: accessory muscle use, rales, rhonchi, wheezes - Cardiovascular Cardiovascular exam: Present: RRR, +S1, +S2. Absent: diastolic murmur, gallop, rubs, systolic murmur - GI/Abdominal GI/Abdominal exam: Present: tenderness (Generalized abdominal discomfort) Internal Medicine: Result - Labs CBC & Chem 7: 05/30/17 08:03 05/30/17 08:03 Labs: Short CBC 05/30/17 Range/Units 08:03 WBC 8.6 (4.3-11.1) K/mcL Hgb 14.1 D (11.5-15.4) g/dL Hct 40.6 (35.3-44.9) % Plt Count 245 (140-400) K/mcL Neutrophils # 5.4 (1.6-8.9) K/mcL BMP 05/30/17 08:03 Sodium 142 Potassium 3.7 Chloride 108 H Carbon Dioxide 25 BUN 4 L Creatinine 0.66 Glucose 100 Calcium 8.7 Consult Discharge Plan - Plan Referrals: Mariusz Galarza DO [Primary Care Provider] -
[2017-05-31] MEDS: MetroNIDAZOLE 500 MG/100 ML 500 MG/100 ML BAG IVPB SCH ×2 (05:04→13:35)
[2017-05-31] MEDS: *HR* Heparin 5,000 UNIT/ML VIAL SQ SCH ×2 (05:05→05:10)
[2017-05-31] MEDS: 0.9 % Sodium Chloride 1,000 ML IVC SCH (05:05)
--- NOTE | 2017-05-31 15:11 | Discharge Summary ---
Date of Encounter: 05/31/17 Time of Encounter: 11:00 - Discharge Diagnosis (1) Colitis Priority: Primary Status: Acute (2) Abdominal pain Priority: Primary Status: Acute Qualifiers: Abdominal location: generalized Qualified Code(s): R10.84 - Generalized abdominal pain - Discharge Medications Prescriptions: Ciprofloxacin [Cipro] 500 mg PO BID #14 tablet metroNIDAZOLE [Flagyl] 500 mg PO TID #21 tablet Home Medications: Varenicline Tartrate [Chantix] 1 mg PO BID 05/26/17 [History] Ciprofloxacin [Cipro] 500 mg PO BID #14 tablet 05/31/17 [Rx] metroNIDAZOLE [Flagyl] 500 mg PO TID #21 tablet 05/31/17 [Rx] Allergies/Adverse Reactions: 3 Allergy/AdvReac Type Severity Reaction Status Date / Time Penicillins Allergy Rash Verified 12/11/16 11:11 Date of admission: 05/25/17 22:21 Primary care physician: Mariusz Galarza DO Consults: 05/29/17 10:27 Consult to Gastroenterology [CONS] Routine Consulting Provider: Gastroenterology Emily Reason for Consult: 56 yr old woman with sigmoid colitis Call Completed: Yes - Patient Status Disposition: Home, Self-Care Condition: Good - Discharge Instructions Follow Up With: Mariusz Galarza DO [Primary Care Provider] - Forms: Inpatient Work/School Release Hospital course: Patient is a 56-year-old female who presents to the ER on 05/25/17 due to abdominal pain. Patient reported of a two-week history of intermittent abdominal discomfort which has gradually gotten worse. Patient also reported fever/chills/nausea/ vomiting in addition to decreased appetite CT abdomen in ER showed moderate sigmoid wall thickening with adjacent pericolic fat stranding. CT 2016 shows thickened wall as well, colonoscopy 5 years ago per pt was unremarkable. Patient was admitted to the medical floor for further medical evaluation. During patients hospital stay, her abdominal discomfort improved on IV Cipro/ Flagyl. GI was consulted with recommendations for EGD and colonoscopy which showed LA grade A reflux esophagitis in addition to gastritis on EGD and congested mucosa in the distal sigmoid colon on colonoscopy. Recommendations for follow-up with GI in 1-2 weeks. She will be discharged to complete a seven-day course of Cipro/Flagyl. - Time Spent with Patient Total time spent providing and/or coordinating discharge services: Less than 30 minutes - Constitutional Vitals: Temp Pulse Resp BP Pulse Ox 98.3 F 69 16 157/98 97 05/31/17 10:41 05/31/17 10:41 05/31/17 10:41 05/31/17 10:41 05/31/17 10:41 General appearance: Present: A&O X 3, no acute distress - Respiratory Respiratory exam: Present: CTAB. Absent: accessory muscle use, rales, rhonchi, wheezes - Cardiovascular Cardiovascular exam: Present: RRR, +S1, +S2. Absent: diastolic murmur, gallop, rubs, systolic murmur
[2017-05-31 15:16] VITALS: BP 156/87
== END 2017-05-31 16:36 | disposition home or self-care (01) ==
LOC: EMEROO 16:38 → 3ANU 16:38 → SUATTDRO 22:21 → 3ANU 22:48
PROVIDERS: ADMIT Internal Medicine; ATTEND Hospitalist